=== PATIENT | female | born 1955 | race Hispanic/Latino ===

== ENCOUNTER 2023-02-25 15:47 | Outpatient (CLI) | payer OTHER ==
[2023-02-25 17:10] LABS: #Monocytes 0.3 10x3/uL (0.0-1.1); #Neutrophils 1.6 10x3/uL (1.5-8.4); %Basophils 0.9 % (0.0-2.0); %Eosinophils 1.2 % (0.0-6.0); %Lymphocytes 39.6 % (18.0-47.0); %Monocytes 9.5 % (0.0-10.0); %Neutrophils 48.5 % (40.0-75.0); Hematocrit 35.7 % (34.9-44.5); Hemoglobin 12.2 g/dL (12.0-15.5); Mean Corpuscular HGB CONC 34.2 g/dL (32.0-36.0); Mean Corpuscular Hemoglobin 32.8 pg (27.0-33.0); Mean Platelet Volume 10.2 fl (7.4-10.4); Platelet Count 252 10x3/uL (150-450); RBC Distribution Width 12.5 % (11.5-14.5); Red Blood Cell (RBC) Count 3.72 10x6/uL (3.90-5.03); White Blood Cell (WBC) Count 3.4 10x3/uL (3.5-10.5)
[2023-02-25 17:53] LABS: Anion Gap 11 mmol/L (10-20); BUN (Urea Nitrogen) 23 mg/dL (9.8-20.1); Calc. Creatinine Clearance 0 mL/min (70-130); Calcium 8.8 mg/dL (7.8-10.44); Carbon Dioxide 28 mmol/L (23-31); Chloride 104 mmol/L (98-107); Estimated GFR 89; Glucose 101 mg/dL (80-115); Potassium 3.6 mmol/L (3.5-5.1); Sodium 139 mmol/L (136-145)
== END 2023-02-25 15:48 | disposition home or self-care (01) ==
LOC: LABBT 15:47
PROVIDERS: ATTEND Orthopaedic Surgery
DX: Z01.818 Encounter for other preprocedural examination (principal); M75.111 Incomplete rotator cuff tear or rupture of right shoulder, not specified as traumatic; M19.011 Primary osteoarthritis, right shoulder
CPT/HCPCS: 80048; 85025; 93005; 93010

== ENCOUNTER 2023-03-06 09:28 | Day surgery (SDC) | payer OTHER, SELFPAY ==
[2023-02-25 16:36] VITALS: BMI 24.0
[2023-03-06] MEDS ORDERED: Ropivacaine 0.2% HCl/PF 20 ML ONE (10:16)
[2023-03-06] MEDS ORDERED: Ropivacaine 0.5% HCl/PF (150 MG/30 ML VIAL) ONE (10:16)
[2023-03-06] MEDS ORDERED: Midazolam HCl 2 mg/2 ml Vial ONE (10:16)
[2023-03-06] MEDS ORDERED: fentaNYL 50 mcg/mL 1 mL Vial ONE (10:16)
[2023-03-06] MEDS ORDERED: Fentanyl 250 MCG/5 ML VIAL ONE (10:44)
[2023-03-06] MEDS ORDERED: Rocuronium Bromide 10 MG/ML (10ML VIAL) ONE (10:44)
[2023-03-06] MEDS ORDERED: PROPOFOL 20 ML ONE (10:44)
[2023-03-06] MEDS ORDERED: Sodium Chloride 0.9% 100 ML ONE (10:53)
[2023-03-06] MEDS ORDERED: CEFAZOLIN 2 GM VIAL ONE (10:53)
[2023-03-06] MEDS ORDERED: Ondansetron PF 4 MG/2 ML Vial IVP PRN (11:00)
[2023-03-06] MEDS ORDERED: HYDROcodone/Acetaminophen 10/325 mg Tablet PO PRN ×2 (11:00)
[2023-03-06] MEDS ORDERED: traMADol HCl 50 MG TAB PO PRN ×2 (11:00)
[2023-03-06] MEDS ORDERED: Promethazine HCl 25 MG/ML VIAL IM PRN (11:00)
[2023-03-06] MEDS ORDERED: Ketorolac Tromethamine 30 MG (1 mL) VIAL IVP PRN (11:00)
[2023-03-06] MEDS ORDERED: Zolpidem Tartrate 5 MG TAB PO PRN (11:00)
[2023-03-06] MEDS ORDERED: Ropivacaine 0.2% 550 ML 550 ML NERVE BLCK SCH (11:00)
[2023-03-06] MEDS ORDERED: PHENYLEPHRINE-NS 100 MCG/ML 10 ML SYRINGE ONE (11:30)
[2023-03-06] MEDS ORDERED: Ondansetron PF 4 MG/2 ML Vial ONE (11:38)
[2023-03-06] MEDS ORDERED: Dexamethasone 4 mg/ml Vial ONE (11:38)
[2023-03-06] MEDS ORDERED: ePHEDrine Sulfate 50 MG/10 ML VIAL ONE (11:40)
[2023-03-06] MEDS ORDERED: SUGAMMADEX SODIUM 200 MG/2 ML VIAL ONE (12:31)
[2023-03-06] MEDS ORDERED: Ketorolac Tromethamine 30 MG (1 mL) VIAL ONE (12:31)
[2023-03-06] MEDS ORDERED: Bupivacaine 0.25% HCL 30 ML VIAL ONE (13:31)
[2023-03-06] MEDS ORDERED: EPINEPHrine 1 MG/ML VIAL ONE (13:31)
== END 2023-03-06 17:00 | disposition home or self-care (01) ==
LOC: SDC 09:28
PROVIDERS: ATTEND Orthopaedic Surgery
PROC: 0PT Upper Bones, Resection (ICD-10-PCS; principal; 2023-03-06)
PROC: 0LQ14ZZ Repair Right Shoulder Tendon, Percutaneous Endoscopic Approach (ICD-10-PCS; principal; 2023-03-06)
PROC: 0RNJ4ZZ Release Right Shoulder Joint, Percutaneous Endoscopic Approach (ICD-10-PCS; principal; 2023-03-06)
PROC: 0LS30ZZ Reposition Right Upper Arm Tendon, Open Approach (ICD-10-PCS; principal; 2023-03-06)
DX: M75.111 Incomplete rotator cuff tear or rupture of right shoulder, not specified as traumatic (principal); M19.011 Primary osteoarthritis, right shoulder; I10 Essential (primary) hypertension; E11.9 Type 2 diabetes mellitus without complications; Z90.49 Acquired absence of other specified parts of digestive tract; Z90.710 Acquired absence of both cervix and uterus; Z87.891 Personal history of nicotine dependence; Z79.890 Hormone replacement therapy; Z79.84 Long term (current) use of oral hypoglycemic drugs; Z79.899 Other long term (current) drug therapy
CPT/HCPCS: A4306; C1713; J0171; J1100; J1885; J2250; J2405; J2704; J2795; J3010; J3490; S0020